=== PATIENT | female | born 1990 | race Caucasian/White ===

== ENCOUNTER → 2021-02-15 04:08 | Outpatient (CLI) | payer BC, SELFPAY ==
[2021-02-15 19:01] LABS: SARS-CoV-2 RNA PCR Negative
== END ==
PROVIDERS: Visit Provider Surgery Plastic and Reconstructive Surgery
DX: Z01.812 Encounter for preprocedural laboratory examination (principal); Z20.822 Contact with and (suspected) exposure to COVID-19
CPT/HCPCS: C9803; U0003; U0005

== ENCOUNTER 2021-02-18 00:42 | Day surgery (SDC) | payer BC, SELFPAY ==
[2021-02-09 15:51] VITALS: BMI 37.1
--- NOTE | 2021-02-17 12:08 | WPDANESEPPF ---
Anes - Initial Pre Proc Eval Procedure: Operation Date: 02/18/21 07:30 Proposed Procedures p Bilateral Breast Reduction - Roney Hay MD Date/Time: 02/17/21 12:08 Surgeon: Roney Hay MD Pre Op Diagnosis: macromastia Patient Data Age: 30 Gender: F Height: 1.68 m Weight: 104.5 kg Allergies Allergy/AdvReac Type Severity Reaction Status Date / Time No Known Allergies Allergy Verified 02/18/21 06:12 Home Medications Medication Instructions Recorded Confirmed Type nebivolol 5 mg tablet 5 mg PO DAILY 11/18/20 02/18/21 History lithium carbonate 600 mg PO BID 02/09/21 02/18/21 History docusate sodium 100 mg capsule 100 mg PO BID 7 Days #14 cap 02/15/21 02/18/21 Rx hydrocodone 5 mg-acetaminophen 325 1 tablet PO Q6H PRN #15 tablet 02/15/21 02/18/21 Rx mg tablet ondansetron HCl 4 mg tablet 4 mg PO Q6H PRN #30 tablet 02/15/21 02/18/21 Rx Patient hx anesthesia problems: none Family hx anesthesia problems: none PMFSH Past Medical History Medical History (Updated 02/17/21 @ 12:10 by Marquise Schaeffer MD) Adult BMI 37.0-37.9 kg/sq m Bipolar 1 disorder Depression Diabetes Hypertension PTSD (post-traumatic stress disorder) Surgical History Surgical History History of delivery History of tonsillectomy Family History Family History Father Kidney malignancy Brain tumor Bipolar 1 disorder Hypoglycemia Mother Endometriosis Social History Social History Smoking status: Never smoker Alcohol intake: never Substance use: never Living arrangements: with family Spiritual care concerns: No Anes - Eval Final PreProcedure Day of Procedure 02/17/21 12:08 Patient weight: obese Heart: regular rate and rhythm Lungs: clear to auscultation and normal air movement Airway: Mallampati scale class II Neurological: alert and oriented Last oral intake: >/= 8 hours ASA classification: III Emergent: no Anesthetic plan: proceed Anesthesia type and monitoring: general LMA Informed Consent: The patient's anesthetic plan and its attendant risks and benefits were discussed with the patient/family/POA. Questions were solicited and answers provided to the satisfaction of the patient/family/POA.
[2021-02-18] VITALS (10 sets, daily range): BP systolic 122–148; BP diastolic 87–103; PULSE 61–95; RESP 10–16; TEMP 36.4–36.7; O2SAT 95–100
[2021-02-18 06:20] LABS: Urine Cotinine NEGATIVE
[2021-02-18] MEDS: LACTATED RINGERS 1,000 ML 30 ML IV CONT ×2 (06:32→10:08)
--- NOTE | 2021-02-18 06:43 | WPDHPUPDATE1 ---
History and Physical Update Update Date/Time: 02/18/21 06:43 History and Physical has been reviewed, including an updated exam of the patient. There are NO changes in the patient's condition. Risks, benefits, and alternatives have been discussed and questions answered. Patient agrees to proceed with procedure.
--- NOTE | 2021-02-18 07:05 | P.OP_ITS ---
Procedure Note - Detailed Date of Procedure 02/18/21 Pre-op Diagnosis macromastia Post-op Diagnosis same Procedure Performed Bilateral Reduction Mammaplasty Surgeon Roney Hay MD Anesthesia general Findings Inverted T Superior Medial Pedicle Tissue removed: Right - 1018.1 grams Left - 1150.5 grams Description of Procedure She is here today for bilateral breast reduction. Previously and again today the risks, benefits, alternatives were discussed in extensive detail. I wanted her to be very realistic about the risks involved as well as expectations. We discussed aftercare and what to monitor for. She understands we can never guarantee final breast size and there will always be asymmetry. I was very upfront and honest about the risks of sensation change and even nipple loss (). Made sure answered all of her questions to her satisfaction today and consent was obtained. She was marked in the preoperative holding area with their verification. The patient was taken to the operating room placed supine on the operating table. Anesthesia was provided by anesthesiology. She was prepped and draped in a standard sterile fashion. A surgical time-out was taken. Stab incisions were made and I tumessed with a tumescent solution. I marked out the nipple-areolar complex at 42 mm. I then de-epithelialized the pedicle. The pedicle was well left well more than 2 cm in thickness. I then removed the inferior portion of the breast as well as the central keel to get shape based on preoperative planning. At this point copiously irrigated with saline solution and verified a strict hemostasis. I reapproximated the pillars using a 2-0 PDS. I tailor tacked the breast into place with shar. She was placed in a sitting position. I verified the nipple-areolar complex position based on preoperative markings, intraoperative measurements, and observation which were in full agreement. This nipple-areolar complex was marked at 42 mm in size. I then placed supine and de-epithelialized this. Nipple-areolar complex was inset with 3-0 Monocryl. I closed IMF deep with 1 strattafix. I closed the vertical incision with 3-0 Monocryl in the IMF with 3- 0 stratafix. Then everything was closed using a running subcuticular 4-0 Monocr yl followed by Steri-Strips. A dressing was placed followed by surgical bra. Patient was awoke and taken to PACU without difficulty. All instrument sponge counts were correct at the end of the case. Estimated Blood Loss 40 Drains No Packing No Pathology yes (Bilateral breast tissue) Complications No immediate complications Condition stable Disposition PACU
[2021-02-18] MEDS: ceFAZolin 2 GM/D5W 50 ML 2 GM/50 ML BAG IVPB (07:26)
[2021-02-18] MEDS: TRANEXAMIC ACID 1,000MG/ISO100 1,000 MG/100 ML BAG 200 MG IVPB (07:37)
[2021-02-18] MEDS: LACTATED RINGERS IRRIG 1,000 ML, LIDOCAINE HCL 1% LOCAL INJ 50 ML, EPINEPHrine HCL INJ ... INFILTRATE (07:49)
[2021-02-18] MEDS: fentaNYL CITRATE INJ (*CRX) 100 MCG/2 ML VIAL 25 MCG IV PUSH ×5 (10:16→11:05)
[2021-02-18] MEDS: oxyCODONE HCL (*CRX) 5 MG TAB IR PO (11:41)
[2021-02-18] MEDS: ONDANSETRON HCL ODT 4 MG TABLET PO (12:34)
== END 2021-02-18 12:36 | disposition home or self-care (01) ==
PROVIDERS: Visit Provider Surgery Plastic and Reconstructive Surgery
PROC: 0HBV0ZZ Excision of Bilateral Breast, Open Approach (ICD-10-PCS; CPT 19318; principal; 2021-02-18 07:30)
DX: N62 Hypertrophy of breast (principal); N60.32 Fibrosclerosis of left breast; N60.31 Fibrosclerosis of right breast; N60.42 Mammary duct ectasia of left breast; N60.82 Other benign mammary dysplasias of left breast; N60.21 Fibroadenosis of right breast; M54.9 Dorsalgia, unspecified; G89.29 Other chronic pain; M54.2 Cervicalgia; M25.511 Pain in right shoulder; M25.512 Pain in left shoulder; N64.4 Mastodynia; N64.89 Other specified disorders of breast; L98.9 Disorder of the skin and subcutaneous tissue, unspecified; L30.4 Erythema intertrigo; I10 Essential (primary) hypertension; E11.9 Type 2 diabetes mellitus without complications; F31.9 Bipolar disorder, unspecified; F43.10 Post-traumatic stress disorder, unspecified; E66.9 Obesity, unspecified; Z68.36 Body mass index [BMI] 36.0-36.9, adult; Z79.899 Other long term (current) drug therapy
CPT/HCPCS: 19318; 80307; 88305; A9270; J0171; J0690; J2250; J2270; J2405; J2704; J3010; J7120